=== PATIENT | male | born 1990 | race American Indian/Alaskan Native ===

== ENCOUNTER 2017-02-27 01:25 | Emergency (ER) | payer SELFPAY ==
[2017-02-27 02:55] VITALS: BP 142/94
[2017-02-27] MEDS ORDERED: MOTRIN PO ONE (04:24)
[2017-02-27 05:19] LABS: Basophils % (Auto) 0.6 % (0.0-1.8); Eosinophils % (Auto) 0.6 % (0.0-4.3); Hematocrit 45.4 % (35.5-45.6); Hemoglobin 15.5 gm/dl (11.8-15.2); Mean Corpuscular HGB Conc 34 % (32-34); Mean Corpuscular Hemoglobin 32 pg (28-32); Mean Corpuscular Volume 94 fl (84-94); Platelet Count 167 K/mm3 (140-440); Red Blood Count 4.81 M/mm3 (3.65-5.03); Red Cell Distribution Width 13.7 % (13.2-15.2)
[2017-02-27 05:22] LABS: Anion Gap 16 mmol/L; BUN/Creatinine Ratio 8.88; Blood Urea Nitrogen 8 mg/dL (9-20); Calcium 8.7 mg/dL (8.4-10.2); Carbon Dioxide 26 mmol/L (22-30); Chloride 104.5 mmol/L (98-107); Glucose 93 mg/dL (75-100); Potassium 4.1 mmol/L (3.6-5.0); Sodium 142 mmol/L (137-145)
--- NOTE | 2017-02-27 05:50 | Ultrasound Report ---
FINAL REPORT EXAM: US TESTICULAR DOPPLER COMP HISTORY: B/L groin and scrotal pain COMPARISONS: None FINDINGS: Grayscale, color and spectral Doppler ultrasound evaluation of the testicles The right testicle measures 4.1 x 2.1 x 2.9 cm and demonstrates normal echotexture and color and spectral Doppler evaluation. The epididymis is within normal limits. No intra or extratesticular mass. The left testicle measures 4.3 x 2.2 x 2.9 cm and demonstrates normal echotexture and color and spectral Doppler evaluation. The epididymis is within normal limits. No intra or extratesticular mass. No hydrocele or varicocele. IMPRESSION: Unremarkable testicular ultrasound.
[2017-02-27 08:12] LABS: Bilirubin,Urine NEG (Negative); Blood,Urine NEG (Negative); Ketones,Urine NEG (Negative); Leukocyte Esterase,Urine NEG (Negative); Mucus,Urine 2+ /HPF; Nitrite,Urine NEG (Negative); Urobilinogen,Urine < 2.0 mg/dL (<2.0)
--- NOTE | 2017-02-27 08:50 | Emergency Department Report ---
ED Male HPI - General Chief complaint: Urogenital-Male Stated complaint: ABD PAIN Time Seen by Provider: 02/27/17 08:46 Source: patient Mode of arrival: Stretcher Limitations: No Limitations - History of Present Illness Initial comments: Patient here reports that he is having lower abdominal pain 4 days. Also reported bilateral groin and scrotal pain. Pain is 9 out of 10 and feels sore worse walking. Resting. Denies taking any rhqg-sqg-givzial medication. Denies any urinary burning, frequency or urgency. Denies any nausea or vomiting. He denies any back pain. Denies any exposure to STD and is not concerned for STDs. Denies any blood in his urine. Denies any numbness or tingling to her lower extremities. Denies any medical or surgical history. Patient denies any fever or chills. MD Complaint: testicle pain, groin pain Onset/Timin -: days(s) Location: right testicle, left testicle, right inguinal region, abdomen Radiation: none Severity: severe Severity scale (0 -10): 9 Quality: other (sore) Consistency: intermittent Improves with: rest Worsens with: movement denies: discharge, swelling, rash, urinary retention, blood in urine, dysuria, fever, nausea/vomiting, incontinence - Related Data Sexually active: Yes Previous Rx's Medication Instructions Recorded Last Taken Type Ibuprofen [Motrin] 600 mg PO Q8H PRN #12 tablet 02/27/17 Unknown Rx Allergies Allergy/AdvReac Type Severity Reaction Status Date / Time No Known Allergies Allergy Unverified 02/27/17 04:19 ED Review of Systems ROS: Stated complaint: ABD PAIN Other details as noted in HPI Comment: All other systems reviewed and negative Constitutional: no symptoms reported ENT: denies: throat pain Respiratory: no symptoms reported Cardiovascular: denies: chest pain, palpitations, edema, syncope Gastrointestinal: abdominal pain. denies: nausea, vomiting, diarrhea, constipation, hematemesis, melena, hematochezia Genitourinary: testicular pain, other (Groin pain). denies: urgency, dysuria, frequency, hematuria, discharge, testicular mass Musculoskeletal: denies: back pain, arthralgia, myalgia Skin: denies: rash Neurological: denies: headache, weakness, numbness, paresthesias, confusion, abnormal gait, vertigo ED Past Medical Hx - Past Medical History Previous Medical History?: No - Surgical History Past Surgical History?: No - Family History Family history: no significant - Social History Smoking Status: Current Every Day Smoker Substance Use Type: None - Medications Home Medications: Home Medications Medication Instructions Recorded Confirmed Last Taken Type Ibuprofen [Motrin] 600 mg PO Q8H PRN #12 tablet 02/27/17 Unknown Rx ED Physical Exam - General Limitations: No Limitations General appearance: alert, in no apparent distress - Head Head exam: Present: atraumatic, normocephalic, normal inspection - Eye Eye exam: Present: normal appearance, PERRL, EOMI. Absent: scleral icterus, conjunctival injection, nystagmus Pupils: Present: normal accommodation - ENT ENT exam: Present: normal exam, normal orophraynx, mucous membranes moist - Neck Neck exam: Present: normal inspection, full ROM. Absent: tenderness, lymphadenopathy - Respiratory Respiratory exam: Present: normal lung sounds bilaterally. Absent: respiratory distress, wheezes, rales, rhonchi, stridor, chest wall tenderness, accessory muscle use, decreased breath sounds, prolonged expiratory - Cardiovascular Cardiovascular Exam: Present: regular rate, normal rhythm, normal heart sounds - GI/Abdominal GI/Abdominal exam: Present: soft, tenderness (Mid abdomen), normal bowel sounds. Absent: distended, guarding, rebound, rigid, organomegaly, mass, bruit , pulsatile mass, hernia - exam: Present: normal inspection. Absent: testicular tenderness, urethral discharge, scrotal swelling, vertical testicular lie External exam: Present: normal external exam. Absent: erythema, swelling, lesions, lacerations, ecchymosis, bleeding - Extremities Exam Extremities exam: Present: normal inspection, full ROM, normal capillary refill. Absent: tenderness, pedal edema, joint swelling, calf tenderness - Back Exam Back exam: Present: normal inspection, full ROM. Absent: tenderness, CVA tenderness (R), CVA tenderness (L), muscle spasm, paraspinal tenderness, vertebral tenderness, rash noted - Neurological Exam Neurological exam: Present: alert, oriented X3, normal gait, reflexes normal. Absent: motor sensory deficit - Psychiatric Psychiatric exam: Present: normal affect, normal mood - Skin Skin exam: Present: warm, dry, intact, normal color. Absent: rash ED Course Vital Signs 02/27/17 02/27/17 01:25 04:11 Temperature 98.3 F 98.3 F Pulse Rate 59 L 59 L Respiratory 22 Rate Blood Pressure 142/94 Blood Pressure 142/94 [Right] O2 Sat by Pulse 100 100 Oximetry - Reevaluation(s) Reevaluation #1: 02/27/17 10:00 Patient received Motrin in triage nurse 600 mg. The Toradol 30 mg IV in the emergency room which relieved his pain. I waited in CT abdomen results. Ultrasound of Testes normal exam. ED Medical Decision Making - Lab Data Result diagrams: 02/27/17 04:51 02/27/17 04:51 Lab Results 02/27/17 02/27/17 02/27/17 Range/Units 04:51 04:51 07:31 WBC 8.0 (4.5-11.0) K/mm3 RBC 4.81 (3.65-5.03) M/mm3 Hgb 15.5 H (11.8-15.2) gm/dl Hct 45.4 (35.5-45.6) % MCV 94 (84-94) fl MCH 32 (28-32) pg MCHC 34 (32-34) % RDW 13.7 (13.2-15.2) % Plt Count 167 (140-440) K/mm3 Lymph % (Auto) 28.0 (13.4-35.0) % Desha % (Auto) 5.4 (0.0-7.3) % Eos % (Auto) 0.6 (0.0-4.3) % Baso % (Auto) 0.6 (0.0-1.8) % Lymph # 2.2 (1.2-5.4) K/mm3 Desha # 0.4 (0.0-0.8) K/mm3 Eos # 0.0 (0.0-0.4) K/mm3 Baso # 0.0 (0.0-0.1) K/mm3 Seg Neutrophils % 65.4 (40.0-70.0) % Seg Neutrophils # 5.2 (1.8-7.7) K/mm3 Sodium 142 (137-145) mmol/L Potassium 4.1 (3.6-5.0) mmol/L Chloride 104.5 (98-107) mmol/L Carbon Dioxide 26 (22-30) mmol/L Anion Gap 16 mmol/L BUN 8 L (9-20) mg/dL Creatinine 0.9 (0.8-1.5) mg/dL Estimated GFR > 60 ml/min BUN/Creatinine Ratio 8.88 % Glucose 93 (75-100) mg/dL Calcium 8.7 (8.4-10.2) mg/dL Total Bilirubin (0.1-1.2) mg/dL Direct Bilirubin (0-0.2) mg/dL Indirect Bilirubin mg/dL AST (5-40) units/L ALT (7-56) units/L Alkaline Phosphatase (35-129) units/L Total Protein (6.3-8.2) g/dL Albumin (3.9-5) g/dL Albumin/Globulin Ratio % Urine Color Yellow (Yellow) Urine Turbidity Clear (Clear) Urine pH 5.0 (5.0-7.0) Ur Specific [place] 1.028 (1.003-1.030) Urine Protein 30 mg/dl (Negative) mg/dL Urine Glucose (UA) Neg (Negative) mg/dL Urine Ketones Neg (Negative) mg/dL Urine Blood Neg (Negative) Urine Nitrite Neg (Negative) Urine Bilirubin Neg (Negative) Urine Urobilinogen < 2.0 (<2.0) mg/dL Ur Leukocyte Esterase Neg (Negative) Urine WBC (Auto) 2.0 (0.0-6.0) /HPF Urine RBC (Auto) 5.0 (0.0-6.0) /HPF U Epithel Cells (Auto) < 1.0 (0-13.0) /HPF Urine Mucus 2+ /HPF 02/27/17 Range/Units 09:03 WBC (4.5-11.0) K/mm3 RBC (3.65-5.03) M/mm3 Hgb (11.8-15.2) gm/dl Hct (35.5-45.6) % MCV (84-94) fl MCH (28-32) pg MCHC (32-34) % RDW (13.2-15.2) % Plt Count (140-440) K/mm3 Lymph % (Auto) (13.4-35.0) % Desha % (Auto) (0.0-7.3) % Eos % (Auto) (0.0-4.3) % Baso % (Auto) (0.0-1.8) % Lymph # (1.2-5.4) K/mm3 Desha # (0.0-0.8) K/mm3 Eos # (0.0-0.4) K/mm3 Baso # (0.0-0.1) K/mm3 Seg Neutrophils % (40.0-70.0) % Seg Neutrophils # (1.8-7.7) K/mm3 Sodium (137-145) mmol/L Potassium (3.6-5.0) mmol/L Chloride (98-107) mmol/L Carbon Dioxide (22-30) mmol/L Anion Gap mmol/L BUN (9-20) mg/dL Creatinine (0.8-1.5) mg/dL Estimated GFR ml/min BUN/Creatinine Ratio % Glucose (75-100) mg/dL Calcium (8.4-10.2) mg/dL Total Bilirubin 0.20 (0.1-1.2) mg/dL Direct Bilirubin < 0.2 (0-0.2) mg/dL Indirect Bilirubin 0.0 mg/dL AST 38 (5-40) units/L ALT 55 (7-56) units/L Alkaline Phosphatase 227 H (35-129) units/L Total Protein 6.7 (6.3-8.2) g/dL Albumin 3.9 (3.9-5) g/dL Albumin/Globulin Ratio 1.4 % Urine Color (Yellow) Urine Turbidity (Clear) Urine pH (5.0-7.0) Ur Specific [place] (1.003-1.030) Urine Protein (Negative) mg/dL Urine Glucose (UA) (Negative) mg/dL Urine Ketones (Negative) mg/dL Urine Blood (Negative) Urine Nitrite (Negative) Urine Bilirubin (Negative) Urine Urobilinogen (<2.0) mg/dL Ur Leukocyte Esterase (Negative) Urine WBC (Auto) (0.0-6.0) /HPF Urine RBC (Auto) (0.0-6.0) /HPF U Epithel Cells (Auto) (0-13.0) /HPF Urine Mucus /HPF - Radiology Data Radiology results: report reviewed Ultrasound of the testes reveals normal exam. Ultrasound of the abdomen and pelvis with IV contrast revealed unremarkable CT scan of the abdomen and pelvis with contrast. No acute inflammatory processes identified. Normal appendix. Normal abdominal aorta. No evidence of peritoneal air or fluid. No evidence of abnormal masses or fluid collection within the pelvis. No adenopathy. The bladder is normal. Kidneys are normal without any masses or hydronephrosis. Adrenal glands are normal. No intestinal obstructions or ascites. Normal appendix. The liver is normal size , contour and attenuation. A 2.4 mL angioma is suspected in the posterior segment of right hepatic lobe. No gallstones or biliary dilatation. No spleen or pancreatic abnormalities. - Medical Decision Making ED course: He should here complaining of abdominal pain with bilateral groin pain and scrotal pain this going on for over 4 days. He denied any trauma. Physical findings reveal normal exam. Abdominal mild tenderness to mid abdomen around the umbilical area but patient is without any mass or hernia. Patient is stable he was given Motrin 600 mg in triage area and additional Toradol 30 mg IV which relieved his pain. CT scan of the abdomen and pelvis revealed the patient with hemangioma right hepatic lobe. Ultrasound of testicles reveal normal findings. Lab results were normal except for his ALK was at 227 which is elevated. I discussed the patient diagnostic findings, laboratory findings, diagnosis and treatment plan and he voiced understanding and he is in agreement. Patient remained stable throughout ED course. Multiple abdominal re-evaluation showed no changes. Patient will be discharged home with prescription forMotrin and to follow-up with GI doctor and his primary care physician. I instructed him that if he does not have a primary care physician he'll need to follow up at [facility]. Diagnosis of abdominal pain, hemangioma of the liver and elevated ALK. Patient reports that he is a and he does have access to doctors. Critical care attestation.: If time is entered above; I have spent that time in minutes in the direct care of this critically ill patient, excluding procedure time. ED Disposition Clinical Impression: Cavernous hemangioma of liver, Testicular/scrotal pain, Elevated alkaline phosphatase level Abdominal pain Qualifiers: Abdominal location: periumbilical Qualified Code(s): R10.33 - Periumbilical pain Disposition: TO HOME OR SELFCARE Is pt being admited?: No Does the pt Need Aspirin: No Condition: Stable Instructions: Choroidal Hemangioma (ED), Abdominal Pain (ED) Additional Instructions: There is a component of your chemistry level that was elevated referred to as alkaline phosphates U will need to follow up with GI doctor for further evaluation. 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 Please follow up with a primary care physician and if you do not have one using follow-up with [facility] regarding in abdominal pain Please increase her fluid intake Please return to the emergency room, if you symptoms return or worsen Prescriptions: Ibuprofen [Motrin] 600 mg PO Q8H PRN #12 tablet PRN Reason: Pain Referrals: PRIMARY CARE, [Primary Care Provider] - 2-3 Days [facility] [Provider Group] - 2-3 Days [facility] [Outside] - 2-3 Days Forms: Work/School Release Form(ED)
[2017-02-27] MEDS ORDERED: TORADOL IV ONE (09:02)
[2017-02-27] MEDS ORDERED: NACL ONE (09:14)
[2017-02-27] MEDS ORDERED: NACL 0.9% 1000 ML 1,000 ML ONE (09:25)
[2017-02-27 09:37] LABS: Alanine Aminotransferase 55 units/L (7-56); Albumin 3.9 g/dL (3.9-5); Albumin/Globulin Ratio 1.4 %; Alkaline Phosphatase 227 units/L (35-129); Total Protein 6.7 g/dL (6.3-8.2)
[2017-02-27 09:44] LABS: Bilirubin,Direct < 0.2 mg/dL (0-0.2)
--- NOTE | 2017-02-27 10:01 | Cat Scan Report ---
CT SCAN OF THE ABDOMEN AND PELVIS WITH CONTRAST: HISTORY: Abdominal pain. TECHNIQUE: Helical CT in 1.25mm intervals following IV contrast. Sagittal and coronal reconstructions. FINDINGS: The liver is normal size, contour and attenuation. A 2.4 cm cavernous hemangioma is suspected in the posterior segment of the right hepatic lobe. No gallstones or biliary dilatation are noted. The spleen and pancreas demonstrate a normal size and attenuation with no evidence of abnormal mass. The kidneys are normal in size and position with no evidence of hydronephrosis or mass. The adrenal glands are normal. There is no intestinal obstruction or ascites. Normal appendix. The abdominal aorta is normal. No abnormalities are identified within the retroperitoneum or mesentery. There is no evidence of peritoneal air or fluid. There is no evidence of any abnormal masses or fluid collections within the pelvis. No adenopathy is identified. The bladder is normal. IMPRESSION: Unremarkable CT scan of the abdomen and pelvis with contrast. No acute inflammatory process is appreciated.
== END 2017-02-27 12:40 | disposition home or self-care (01) ==
LOC: ED 01:25
DX: N50.812 Left testicular pain (principal); N50.811 Right testicular pain; D18.09 Hemangioma of other sites; E83.39 Other disorders of phosphorus metabolism; R10.33 Periumbilical pain; F17.200 Nicotine dependence, unspecified, uncomplicated
CPT/HCPCS: 36415; 74177; 80048; 80074; 81001; 85025; 93975; 96374; 99284; J1885; J7030; Q9967

== ENCOUNTER 2021-08-14 06:29 | Emergency (ER) | payer SELFPAY ==
[2021-08-14 06:58] VITALS: BP 134/59
== END 2021-08-14 06:58 | disposition left against medical advice (07) ==
LOC: ED 06:29
DX: R06.00 Dyspnea, unspecified (principal); Z53.21 Procedure and treatment not carried out due to patient leaving prior to being seen by health care provider